=== PATIENT | female | born 1995 | race Caucasian/White ===

== ENCOUNTER 2017-08-09 01:26 | Emergency (ER) | payer BC ==
[2017-08-09] MEDS ORDERED: NS 0.9% 1000 ML* 1,000 ML IV ONE (02:02)
[2017-08-09] MEDS ORDERED: Ketorolac INJ* 30 MG/ML 1 ML VIAL IV ONE (02:02)
[2017-08-09 02:38] LABS: Hematocrit 32 % (35-47); Hemoglobin 10.9 g/dl (12.0-16.0); Mean Corpuscular HGB Conc 34 g/dl (31-36); Mean Corpuscular Hemoglobin 30 pg (27-31); Mean Corpuscular Volume 89 fL (80-97); Mean Platelet Volume 9 um3 (7.4-10.4); Red Blood Count 3.62 10^6/ul (4.0-5.4); Red Cell Distribution Width 13 % (10.5-15); White Blood Count 7.9 10^3/ul (3.5-10.8)
[2017-08-09 02:52] LABS: ALT 8 U/L (7-52); AST 11 U/L (13-39); Alkaline Phosphatase 21 U/L (34-104); Anion Gap 5 mmol/L (2-11); Blood Urea Nitrogen 11 mg/dL (6-24); C Reactive Protein 2.25 mg/L (< 5.00); CO2 Carbon Dioxide 25 mmol/L (22-32); Calcium 8.7 mg/dL (8.6-10.3); Chloride 105 mmol/L (101-111); EGFR African American 157.7 (>60); EGFR Non-African American 122.6 (>60); Globulin 2.5 g/dL (2-4); Glucose 104 mg/dL (70-100); Potassium 3.3 mmol/L (3.5-5.0); Sodium 135 mmol/L (133-145); Total Protein 6.5 g/dL (6.4-8.9)
[2017-08-09] MEDS ORDERED: Iohexol 350* (CONTRAST) 500 ML MDV IV ONE (03:04)
[2017-08-09] MEDS ORDERED: HYDROcodone/ACETAMIN 5-325 MG* 1 TAB PO ONE (04:45)
[2017-08-09] MEDS ORDERED: Cyclobenzaprine TAB* 10 MG PO ONE (04:46)
--- NOTE | 2017-08-09 04:53 | ED ---
Bird Oliveira Nikita, scribed for Sukhdeep Martin MD on 08/09/17 at 0203 . Upper Extremity Pain - HPI Summary HPI Summary: This patient is a 22 year old F presenting to ED with a chief complaint of R shoulder pain since 10 days ago. The CC is described as numb and nerve pain that radiates down to R arm and to R clavicle. Pt reports like it feels like it s about to pop. Pt reports pain has worsened since onset. The patient rates the pain 10/10 in severity. Symptoms aggravated by turning of head. Symptoms alleviated by nothing (went to [facility] 4 days ago and given muscle relaxer and naproxen). Patient reports R arm pain and R clavicle pain, light-headed, nausea , CP and SOB (because of pain), and swelling of R shoulder. - History of Current Complaint Chief Complaint: EDShoulderClavicleInj Stated Complaint: SHOULDER INJURY Time Seen by Provider: 08/09/17 01:52 Hx Obtained From: Patient Hx Last Menstrual Period: January 06 Onset/Duration: Started Days Ago - 10 days ago, Still Present, Worse Since - onset Timing: Constant, Lasting Days Severity Initially: Severe Severity Currently: Severe Pain Location: Shoulder - R shoulder that radiates down R arm and to R clavicle Character: Unable to Describe - like nerve pain and numb, "feels like it's about to pop" Aggravating Factor(s): Other - turning of head Alleviating Factor(s): Nothing - went to [facility] 4 days ago and given muscle relaxer and naproxen Associated Signs & Symptoms: Positive: Other - Patient reports R arm pain and R clavicle pain, light-headed, nausea, CP and SOB (because of pain), and swelling of R shoulder. - Allergies/Home Medications Allergies/Adverse Reactions: Allergies Allergy/AdvReac Type Severity Reaction Status Date / Time Amoxicillin Allergy Intermediate Hives Verified 01/26/16 18:30 Levofloxacin [From Levaquin] Allergy Unknown Hives Verified 01/26/16 18:30 Penicillins [PCN] Allergy Unknown Hives Verified 01/26/16 18:30 PMH/Surg Hx/FS Hx/Imm Hx Endocrine/Hematology History: Denies: Hx Diabetes, Hx Systemic Lupus Erythematosus Cardiovascular History: Denies: Hx Congestive Heart Failure, Hx Hypertension History: Denies: Hx Renal Disease Musculoskeletal History: Denies: Hx Rheumatoid Arthritis - Cancer History Hx Chemotherapy: No Infectious Disease History: No Infectious Disease History: Denies: Traveled Outside the [place] in Last 30 Days - Family History Family History: Negative: blood clotting - Social History Alcohol Use: None Substance Use Type: Reports: None Hx Tobacco Use: No Smoking Status (MU): Never Smoked Tobacco Review of Systems Positive: Chest Pain Positive: Shortness Of Breath Positive: Nausea Positive: Other - R arm pain, R clavicle pain, R shoulder pain, swelling of R shoulder Neurological: Other - light-headed All Other Systems Reviewed And Are Negative: Yes Physical Exam Triage Information Reviewed: Yes Vital Signs On Initial Exam: Initial Vitals Temp Pulse Resp BP Pulse Ox 97.9 F 89 18 110/63 100 08/09/17 01:29 08/09/17 01:29 08/09/17 01:29 08/09/17 01:29 08/09/17 01:29 Vital Signs Reviewed: Yes Appearance: Positive: Pain Distress - moderate pain distress with movement of arm or palpation of arm Skin: Positive: Warm, Dry, Pale Head/Face: Positive: Normal Head/Face Inspection Eyes: Positive: EOMI, HORACE ENT: Positive: Normal ENT inspection Neck: Positive: Supple, Tenderness @ - Tender to palpation on R side of neck and at R trapezius from T1-T5 Respiratory/Lung Sounds: Positive: Clear to Auscultation, Breath Sounds Present Cardiovascular: Positive: RRR - good distal pulses and good capillary refill Abdomen Description: Positive: Nontender, Soft Bowel Sounds: Positive: Present Musculoskeletal: Positive: Strength/ROM Intact, Other - Strength is 5/5. Bilateral shoulder extension is equal at 170 degrees. Bilateral arm abduction is equal at 160 degrees. Internal rotation of L arm at T5, R arm at L3. Diagnostics - Vital Signs Vital Signs Temp Pulse Resp BP Pulse Ox 08/09/17 01:29 97.9 F 89 18 110/63 100 - Laboratory Lab Results: Lab Results 08/09/17 08/09/17 08/09/17 Range/Units 02:25 02:25 02:25 WBC 7.9 (3.5-10.8) 10^3/ul RBC 3.62 L (4.0-5.4) 10^6/ul Hgb 10.9 L (12.0-16.0) g/dl Hct 32 L (35-47) % MCV 89 (80-97) fL MCH 30 (27-31) pg MCHC 34 (31-36) g/dl RDW 13 (10.5-15) % Plt Count 172 (150-450) 10^3/ul MPV 9 (7.4-10.4) um3 Neut % (Auto) 46.7 (38-83) % Lymph % (Auto) 46.5 (25-47) % Bremer % (Auto) 5.4 (1-9) % Eos % (Auto) 0.7 (0-6) % Baso % (Auto) 0.7 (0-2) % Absolute Neuts (auto) 3.7 (1.5-7.7) 10^3/ul Absolute Lymphs (auto) 3.7 (1.0-4.8) 10^3/ul Absolute Monos (auto) 0.4 (0-0.8) 10^3/ul Absolute Eos (auto) 0.1 (0-0.6) 10^3/ul Absolute Basos (auto) 0.1 (0-0.2) 10^3/ul Absolute Nucleated RBC 0.01 10^3/ul Nucleated RBC % 0.1 INR (Anticoag Therapy) 0.89 (0.89-1.11) APTT 23.9 L (26.0-36.3) seconds Sodium 135 (133-145) mmol/L Potassium 3.3 L (3.5-5.0) mmol/L Chloride 105 (101-111) mmol/L Carbon Dioxide 25 (22-32) mmol/L Anion Gap 5 (2-11) mmol/L BUN 11 (6-24) mg/dL Creatinine 0.61 (0.51-0.95) mg/dL Est GFR ( Amer) 157.7 (>60) Est GFR (Non-Af Amer) 122.6 (>60) BUN/Creatinine Ratio 18.0 (8-20) Glucose 104 H (70-100) mg/dL Lactic Acid (0.5-2.0) mmol/L Calcium 8.7 (8.6-10.3) mg/dL Total Bilirubin 0.40 (0.2-1.0) mg/dL AST 11 L (13-39) U/L ALT 8 (7-52) U/L Alkaline Phosphatase 21 L (34-104) U/L C-Reactive Protein 2.25 (< 5.00) mg/L Total Protein 6.5 (6.4-8.9) g/dL Albumin 4.0 (3.2-5.2) g/dL Globulin 2.5 (2-4) g/dL Albumin/Globulin Ratio 1.6 (1-3) Beta HCG, Quant < 0.60 mIU/mL 08/09/17 Range/Units 02:25 WBC (3.5-10.8) 10^3/ul RBC (4.0-5.4) 10^6/ul Hgb (12.0-16.0) g/dl Hct (35-47) % MCV (80-97) fL MCH (27-31) pg MCHC (31-36) g/dl RDW (10.5-15) % Plt Count (150-450) 10^3/ul MPV (7.4-10.4) um3 Neut % (Auto) (38-83) % Lymph % (Auto) (25-47) % Bremer % (Auto) (1-9) % Eos % (Auto) (0-6) % Baso % (Auto) (0-2) % Absolute Neuts (auto) (1.5-7.7) 10^3/ul Absolute Lymphs (auto) (1.0-4.8) 10^3/ul Absolute Monos (auto) (0-0.8) 10^3/ul Absolute Eos (auto) (0-0.6) 10^3/ul Absolute Basos (auto) (0-0.2) 10^3/ul Absolute Nucleated RBC 10^3/ul Nucleated RBC % INR (Anticoag Therapy) (0.89-1.11) APTT (26.0-36.3) seconds Sodium (133-145) mmol/L Potassium (3.5-5.0) mmol/L Chloride (101-111) mmol/L Carbon Dioxide (22-32) mmol/L Anion Gap (2-11) mmol/L BUN (6-24) mg/dL Creatinine (0.51-0.95) mg/dL Est GFR ( Amer) (>60) Est GFR (Non-Af Amer) (>60) BUN/Creatinine Ratio (8-20) Glucose (70-100) mg/dL Lactic Acid 1.1 (0.5-2.0) mmol/L Calcium (8.6-10.3) mg/dL Total Bilirubin (0.2-1.0) mg/dL AST (13-39) U/L ALT (7-52) U/L Alkaline Phosphatase (34-104) U/L C-Reactive Protein (< 5.00) mg/L Total Protein (6.4-8.9) g/dL Albumin (3.2-5.2) g/dL Globulin (2-4) g/dL Albumin/Globulin Ratio (1-3) Beta HCG, Quant mIU/mL Result Diagrams: 08/09/17 02:25 08/09/17 02:25 Lab Statement: Any lab studies that have been ordered have been reviewed, and results considered in the medical decision making process. - CT C-spine CT Interpretation Completed By: Radiologist - The cervical vertebrae are normally aligned. No fracture or destructive bone lesion. Interspaces are normal. Soft tissues are unremarkable. No acute abnormalities. ED physician has reviewed this radiology report and agrees. T-spine CT Interpretation Completed By: Radiologist - The thoracic vertebrae are normally aligned. No fracture or destructive bone lesion. Interspaces are normal. Soft tissues are unremarkable. No acute abnormalities. ED physician has reviewed this radiology report and agrees. CTA chest CT Interpretation Completed By: Radiologist - Negative for pulmonary embolus. Negative for thoracic aortic aneurysm or dissection. Lungs clear of acute disease. Left renal cyst. ED physician has reviewed this radiology report and agrees. Course/Dx - Course Assessment/Plan: This patient is a 22 year old F presenting to ED with a chief complaint of R shoulder pain since 10 days ago. The CC is described as numb and nerve pain that radiates down to R arm and to R clavicle. Pt reports like it feels like its about to pop. Pt reports pain has worsened since onset. The patient rates the pain 10/10 in severity. Symptoms aggravated by turning of head. Symptoms alleviated by nothing (went to [facility] 4 days ago and given muscle relaxer and naproxen). Patient reports R arm pain and R clavicle pain, light- headed, nausea, CP and SOB (because of pain), and swelling of R shoulder. CT C- spine reveals the cervical vertebrae are normally aligned. No fracture or destructive bone lesion. Interspaces are normal. Soft tissues are unremarkable. No acute abnormalities. CT T-spine reveals the thoracic vertebrae are normally aligned. No fracture or destructive bone lesion. Interspaces are normal. Soft tissues are unremarkable. No acute abnormalities. CTA chest reveals negative for pulmonary embolus. Negative for thoracic aortic aneurysm or dissection. Lungs clear of acute disease. Left renal cyst. ED physician has reviewed this radiology report and agrees. In the ED course, pt was given fluids and Toradol. Medications reviewed. Pt will be discharged. Pt is agreeable with this plan. DISCUSSED RESULTS WITH PATIENT. NO NEUROLOGIC DEFICIT AT THIS TIME. F/U [facility]; RETURN IF WORSE. - Diagnoses Provider Diagnoses: Neck pain, Shoulder pain Discharge - Discharge Plan Condition: Stable Disposition: HOME Prescriptions: Cyclobenzaprine TAB* [Flexeril 10 MG TAB*] 10 mg PO TID PRN #15 tab PRN Reason: Pain HYDROcodone/ACETAMIN 5-325 MG* [[place] 5-325 TAB*] 1 tab PO Q4H PRN #20 tab MDD 6 PRN Reason: Pain Patient Education Materials: Neck Pain (ED), Shoulder Pain (ED) Referrals: [facility] [Primary Care Provider] - Additional Instructions: FOLLOW UP WITH YOUR DOCTOR. RETURN TO THE EMERGENCY DEPARTMENT FOR ANY WORSENING OF YOUR CONDITION; PAIN, SHORTNESS OF BREATH, WEAKNESS, NUMBNESS OR QUESTIONS OR CONCERNS. The documentation as recorded by the Bird carr Nikita accurately reflects the service I personally performed and the decisions made by me, Sukhdeep Martin MD.
[2017-08-09 05:06] VITALS: BP 91/57
--- NOTE | 2017-08-09 08:25 | RAD ---
HISTORY: Right upper chest pain, arm pain COMPARISONS: None TECHNIQUE: Multiple contiguous axial CT scans of the chest were obtained after the administration of nonionic intravenous contrast, timed to the pulmonary arterial phase of contrast enhancement.. Coronal and sagittal multiplanar reformations are also submitted for review. FINDINGS: NECK AND THYROID: The lower neck and thyroid are unremarkable. CHEST WALL: There is no lower cervical, axillary, or supraclavicular lymphadenopathy by size criteria. HEART AND PERICARDIUM: The heart is unremarkable. AORTA AND PULMONARY VASCULATURE: There is no pulmonary arterial filling defect to suggest pulmonary embolism. There is no linear filling defect within the aorta to suggest aortic dissection. MEDIASTINUM: There is no mediastinal lymphadenopathy by size criteria. BHARATHI: There is no hilar lymphadenopathy by size criteria. AIRWAY AND ESOPHAGUS: The airway is unremarkable, without endobronchial filling defect. The esophagus is grossly normal. LUNG PARENCHYMA: The lungs are clear. PLEURA: No pleural abnormalities are noted. UPPER ABDOMEN: There is an exophytic cyst of the upper pole of left kidney BONES AND SOFT TISSUES: No bone or soft tissue abnormalities are noted. OTHER: None. IMPRESSION: 1. NO PULMONARY ARTERIAL FILLING DEFECT TO SUGGEST PULMONARY EMBOLISM. 2. LEFT RENAL CYST
--- NOTE | 2017-08-09 08:26 | RAD ---
HISTORY: Back pain COMPARISONS: None TECHNIQUE: Multiple contiguous axial CT scans were obtained of the thoracic spine without intravenous contrast, with coronal and sagittal multiplanar reformations. FINDINGS: SPINAL CANAL: Evaluation of the central canal is limited on CT technique; however, there is no obvious canalicular mass or epidural hemorrhage. ALIGNMENT: The alignment is normal. VERTEBRAL BODIES: The vertebral bodies are preserved in height. The bones are normal in attenuation. JOINTS: There is no subluxation or dislocation. MUSCULATURE: Unremarkable INTERVERTEBRAL DISCS: There is mild loss of intervertebral disc height throughout the spine. AXIAL IMAGES: There is no osseous central canal stenosis or neuroforaminal narrowing. SOFT TISSUES: The visualized soft tissues of the chest and abdomen are unremarkable. OTHER: None IMPRESSION: UNREMARKABLE CT OF THE THORACIC SPINE. THERE IS NO OSSEOUS NEURAL FORAMINAL NARROWING OR CENTRAL CANAL STENOSIS.
--- NOTE | 2017-08-09 08:30 | RAD ---
Indication: Neck pain. CT of the cervical spine was obtained in the axial plane. Sagittal and coronal reconstructed images were obtained. Mastoid air cells are well aerated. There is no evidence of basilar skull fracture. The vertebral bodies appear normal in height. No evidence of fracture is noted. The spaces all well-preserved. Spinal canal appears to be intact. Lung apices are grossly unremarkable. Scattered cervical lymph nodes are present throughout the colon to and in the posterior triangle. These do not appear to be enlarged however. IMPRESSION: No fracture of the cervical spine is noted.
== END 2017-08-09 05:08 | disposition home or self-care (01) ==
LOC: ED 01:26
DX: M54.2 Cervicalgia (principal); M79.601 Pain in right arm; R07.9 Chest pain, unspecified; R06.02 Shortness of breath; R11.0 Nausea; R60.9 Edema, unspecified
CPT/HCPCS: 36415; 71275; 72125; 72128; 80053; 83605; 84702; 85025; 85610; 85730; 86140; 96374; 99283; A9270-GY; J1885; Q9967